=== PATIENT | female | born 1980 | race Caucasian/White ===

== ENCOUNTER 2017-09-05 15:38 | Outpatient (CLI) | payer BC | END 2017-09-05 17:35 | disposition home or self-care (01) | LOC: OBT 15:38 → L-D 15:39 → OBT 17:35 | DX: O62.9 Abnormality of forces of labor, unspecified (principal); Z3A.35 35 weeks gestation of pregnancy | CPT/HCPCS: 76818 ==

== ENCOUNTER 2017-09-08 14:24 | Outpatient (CLI) | payer BC | END 2017-09-08 16:22 | disposition home or self-care (01) | LOC: OBT 14:24 → L-D 14:24 → OBT 16:22 | DX: O41.03X0 Oligohydramnios, third trimester, not applicable or unspecified (principal); O09.523 Supervision of elderly multigravida, third trimester; Z3A.35 35 weeks gestation of pregnancy | CPT/HCPCS: 76818 ==

== ENCOUNTER 2017-09-10 13:32 | Outpatient (CLI) | payer BC | END 2017-09-10 16:20 | disposition home or self-care (01) | LOC: OBT 13:32 → L-D 13:32 → OBT 16:20 | DX: O41.93X0 Disorder of amniotic fluid and membranes, unspecified, third trimester, not applicable or unspecified (principal); O09.523 Supervision of elderly multigravida, third trimester; Z3A.35 35 weeks gestation of pregnancy | CPT/HCPCS: 76816; 76818 ==

== ENCOUNTER 2017-09-13 13:43 | Outpatient (CLI) | payer BC | END 2017-09-13 16:50 | disposition home or self-care (01) | LOC: OBT 13:43 → L-D 13:43 → OBT 16:50 | DX: O62.9 Abnormality of forces of labor, unspecified (principal); O09.213 Supervision of pregnancy with history of pre-term labor, third trimester; O09.523 Supervision of elderly multigravida, third trimester; Z3A.36 36 weeks gestation of pregnancy | CPT/HCPCS: 76818 ==

== ENCOUNTER 2017-09-22 13:56 | Inpatient (IN) | payer BC ==
[2017-09-22] MEDS: SOD CHLORIDE 0.9% 1,000 ML IV ×2 (17:31→21:16)
[2017-09-22] MEDS: LACTATED RINGER'S 1,000 ML IV ×3 (19:00→21:30)
[2017-09-23] MEDS: LACTATED RINGER'S 1,000 ML IV (05:13)
== END 2017-09-23 10:30 | disposition home or self-care (01) | DRG 782 ==
LOC: OBT 13:56 → L-D 13:56 → OBT 19:00 → L-D 19:00
DX: O41.03X0 Oligohydramnios, third trimester, not applicable or unspecified (principal); O09.523 Supervision of elderly multigravida, third trimester; Z3A.37 37 weeks gestation of pregnancy
CPT/HCPCS: 36415; 76815; 76818

== ENCOUNTER 2017-09-24 10:10 | Outpatient (CLI) | payer BC | END 2017-09-24 13:40 | disposition home or self-care (01) | LOC: OBT 10:10 → L-D 10:12 → OBT 13:40 | DX: O41.03X0 Oligohydramnios, third trimester, not applicable or unspecified (principal); O09.523 Supervision of elderly multigravida, third trimester; Z3A.37 37 weeks gestation of pregnancy | CPT/HCPCS: 76818 ==

== ENCOUNTER 2017-09-25 09:48 | Outpatient (CLI) | payer BC | END 2017-09-25 11:58 | disposition home or self-care (01) | LOC: OBT 09:48 → L-D 09:48 → OBT 11:58 | DX: O41.93X0 Disorder of amniotic fluid and membranes, unspecified, third trimester, not applicable or unspecified (principal); O09.523 Supervision of elderly multigravida, third trimester; O34.219 Maternal care for unspecified type scar from previous cesarean delivery; Z3A.38 38 weeks gestation of pregnancy | CPT/HCPCS: 76818 ==

== ENCOUNTER 2019-02-02 20:30 | Emergency (ER) | payer BC ==
[2019-02-02] MEDS: BACITRACIN 0.5%/ZINC 28.35 GM OINT TOP (23:21)
[2019-02-02] MEDS: LIDOCAINE 1% (MDV) 20 ML INJ SC (23:21)
== END 2019-02-02 23:43 | disposition home or self-care (01) ==
LOC: FTE 23:43
DX: S61.012A Laceration without foreign body of left thumb without damage to nail, initial encounter (principal); W26.8XXA Contact with other sharp object(s), not elsewhere classified, initial encounter; Y92.9 Unspecified place or not applicable; Z79.82 Long term (current) use of aspirin
CPT/HCPCS: 99283; Z7610

== ENCOUNTER 2019-03-21 09:50 | Day surgery (SDC) | payer BC ==
[~2019-03-21 09:50] MED LIST: CEFAZOLIN 2 GM/50 ML (PMX) 50 ML IVPB
[2019-03-21] MEDS: GABAPENTIN 300 MG CAP PO (11:23)
[2019-03-21] MEDS: LACTATED RINGER'S 1,000 ML IV (11:23)
[2019-03-21] MEDS: DEXAMETHASONE 2 MG TAB PO (11:23)
[2019-03-21] MEDS ORDERED: BUPIVACAINE 0.5%/EPI (SDV) 30 ML INJ (12:49)
[2019-03-21] MEDS ORDERED: FENTAnyl 50 MCG/ML VIAL (12:57)
[2019-03-21] MEDS ORDERED: PROPOFOL 20 ML (12:57)
[2019-03-21] MEDS ORDERED: CEFAZOLIN 1 GM INJ (12:57)
[2019-03-21] MEDS ORDERED: MIDAZOLAM 1 MG/ML 2 ML INJ (12:57)
[2019-03-21] MEDS ORDERED: LIDOCAINE 2% (SDV) 5 ML INJ (12:57)
[2019-03-21] MEDS ORDERED: ONDANSETRON 4 MG INJ ×2 (13:10→15:08)
[2019-03-21] MEDS ORDERED: DEXAMETHASONE 4 MG/ML 5 ML INJ (13:10)
[2019-03-21] MEDS: MORPHINE SULFATE IRR (15:05)
[2019-03-21] MEDS: KETOROLAC IRR (15:05)
[2019-03-21] MEDS: BUPIVACAINE 0.5% IRR (15:05)
[2019-03-21] MEDS: [UNRECOGNIZED DRUG - OTHER] IRR (15:05)
[2019-03-21] MEDS: ONDANSETRON 4 MG INJ IV (15:13)
== END 2019-03-21 17:05 | disposition home or self-care (01) ==
LOC: SDS 09:50
DX: S83.281A Other tear of lateral meniscus, current injury, right knee, initial encounter (principal); M67.51 Plica syndrome, right knee
CPT/HCPCS: 29881; 93005